=== PATIENT | female | born 1955 | race Caucasian/White ===

== ENCOUNTER 2017-12-26 13:20 | Day surgery (SDC) | payer BC ==
[2017-12-26] MEDS ORDERED: LIDOCAINE 4% SOLUTION 50 ML BTL (15:31)
[2017-12-26] MEDS ORDERED: FENTAnyl 50 MCG/ML VIAL (16:12)
[2017-12-26] MEDS ORDERED: MIDAZOLAM 1 MG/ML 2 ML INJ ×2 (16:12)
== END 2017-12-26 17:29 | disposition home or self-care (01) ==
LOC: GIL 13:20
DX: Z12.11 Encounter for screening for malignant neoplasm of colon (principal); K64.1 Second degree hemorrhoids; K44.9 Diaphragmatic hernia without obstruction or gangrene; K29.70 Gastritis, unspecified, without bleeding; E78.5 Hyperlipidemia, unspecified; R73.03 Prediabetes
CPT/HCPCS: 43239; 88305; 88312

== ENCOUNTER 2019-01-08 11:41 | Emergency (ER) | payer MEDICARE, BC ==
[2019-01-08] MEDS: KETOROLAC 30 MG INJ IM (12:49)
== END 2019-01-08 14:26 | disposition home or self-care (01) ==
LOC: FTE 11:41
DX: M25.562 Pain in left knee (principal); M54.42 Lumbago with sciatica, left side
CPT/HCPCS: 72190; 73562; 96372; 99284-25